=== PATIENT | female | born 1975 | race African-American/Black ===

== ENCOUNTER 2019-06-16 18:46 | Emergency (ER) | payer OTHER ==
[2019-06-16 19:17] VITALS: BP 148/87; PULSE 127; TEMP 98.1; BMI 25.2
--- NOTE | 2019-06-17 16:11 | EKG ---
Test Reason : Blood Pressure : / mmHG Vent. Rate : 114 BPM Atrial Rate : 114 BPM P-R Int : 174 ms QRS Dur : 072 ms QT Int : 320 ms P-R-T Axes : 031 045 012 degrees QTc Int : 441 ms SINUS TACHYCARDIA POSSIBLE LEFT ATRIAL ENLARGEMENT CANNOT RULE OUT ANTERIOR INFARCT , AGE UNDETERMINED ABNORMAL ECG WHEN COMPARED WITH ECG OF 30-NOV-2007 10:28, NO SIGNIFICANT CHANGE WAS FOUND Confirmed by MD TENZIN, MAINOR ([id number]) on 06/17/2019 4:11:40 PM Referred By: Confirmed By:MAINOR DAVE MD
== END 2019-06-16 19:45 | disposition left against medical advice (07) ==
LOC: JER 18:46
DX: Z53.21 Procedure and treatment not carried out due to patient leaving prior to being seen by health care provider (principal)
CPT/HCPCS: 93005; 93010; 99281-25